=== PATIENT | male | born 1985 | race American Indian/Alaskan Native ===

== ENCOUNTER 2020-10-09 07:14 | Day surgery (SDC) | payer OTHER ==
[2020-10-09] MEDS ORDERED: ASPIRIN EC 325 MG TAB PO NR (07:38)
[2020-10-09] MEDS ORDERED: SODIUM CHLORIDE 0.9% 500 ML 500 ML IV SCH (08:00)
[2020-10-09] MEDS ORDERED: MIDAZOLAM 2 MG/2 ML INJ ONE (08:05)
[2020-10-09] MEDS ORDERED: HEPARIN/NS 5000 UNIT/500ML 1,000 ML IR ONE (08:05)
[2020-10-09] MEDS ORDERED: HEPARIN 10,000 UNITS/10 ML VIAL ONE (08:05)
[2020-10-09 08:06] LABS: Basophils # (Auto) 0.1 K/mm3 (0.0-0.1); Basophils % (Auto) 1.3 % (0.0-1.8); Eosinophils # (Auto) 0.1 K/mm3 (0.0-0.4); Eosinophils % (Auto) 2.1 % (0.0-4.3); Hematocrit 44.1 % (35.5-45.6); Hemoglobin 15.2 gm/dl (11.8-15.2); Lymphocytes # (Auto) 2.7 K/mm3 (1.2-5.4); Lymphocytes % (Auto) 42.3 % (13.4-35.0); Mean Corpuscular HGB Conc 35 % (32-34); Mean Corpuscular Volume 84 fl (84-94); Monocytes # (Auto) 0.9 K/mm3 (0.0-0.8); Monocytes % (Auto) 14.5 % (0.0-7.3); Platelet Count 222 K/mm3 (140-440); Red Blood Count 5.25 M/mm3 (3.65-5.03); Red Cell Distribution Width 13.4 % (13.2-15.2)
[2020-10-09 08:16] LABS: INR 0.95 (0.87-1.13)
[2020-10-09 08:18] LABS: BUN/Creatinine Ratio 16; Blood Urea Nitrogen 14 mg/dL (9-20); Calcium 9.4 mg/dL (8.4-10.2); Hemolysis Index 2
[2020-10-09] MEDS: fentaNYL 100 MCG/2 ML INJ ONE ×3 (09:22→09:41)
[2020-10-09] MEDS: LIDOCAINE (2%) 20 MG/1 ML VIAL 20 ML MDV INFILTRATI ONE ×2 (09:25→09:30)
[2020-10-09] MEDS ORDERED: LIDOCAINE (2%) 20 MG/1 ML VIAL 20 ML MDV INFILTRATI ONE (09:36)
[2020-10-09] MEDS ORDERED: cloNIDine 0.1 MG TAB ONE (09:53)
--- NOTE | 2020-10-09 10:31 | Cardiac Catherization Report ---
DATE OF SERVICE: 10/09/2020 INDICATIONS: The patient is a 35-year-old male with a history of a dilated cardiomyopathy, shortness of breath and an abnormal stress test. Coronary angiography was recommended. PROCEDURES PERFORMED: Left heart catheterization, ventriculography and coronary angiography via the right femoral artery using 5 5-[place] Marilyn catheters and a pigtail catheter. The right femoral artery was also injected with contrast to check for stenosis. This was done because the right femoral artery pulse was quite weak. COMPLICATIONS: None. PREPROCEDURE DIAGNOSIS: Suspected coronary artery disease. POSTPROCEDURE DIAGNOSIS: Severe dilated cardiomyopathy. TISSUE SAMPLE: None. ESTIMATED BLOOD LOSS: 10-20 mL. SEDATION: Intravenous Versed and fentanyl. Intravenous labetalol was also administered for uncontrolled hypertension. HEMODYNAMICS: Central aortic pressure 142/104, left ventricular pressure 142/46. ANGIOGRAPHIC RESULTS: 1. Left ventriculogram was performed via hand injection of 10 mL of contrast given the elevated left ventricular end diastolic pressure. The left ventricle is enlarged and the ejection fraction is 10-20%. 2. Right coronary artery: This is the dominant vessel, there are mild intimal irregularities. Left coronary artery: Mild intimal irregularities. PROCEDURE START TIME: 09:32 a.m. SEDATION START TIME: 09:22 a.m. PROCEDURE END TIME: 09:49 a.m. TOTAL SEDATION TIME: 27 minutes. FINAL IMPRESSION: 1. Severe dilated cardiomyopathy. 2. Essentially normal coronary arteries. 3. Uncontrolled hypertension. 4. Morbid obesity. PLAN: Aggressive medical therapy, CAD risk factor modification. Consider ICD therapy. Office followup within 7 days. TID: [id number] RECEIPT: [id number] JDS/STD
--- NOTE | 2020-10-09 10:43 | Discharge Summary ---
Short Stay Discharge Plan Activity: advance as tolerated Weight Bearing Status: Partial Weight Bearing Diet: low fat, low cholesterol, low salt Wound: open to air, keep clean and dry Additional Instructions: I SAW THIS PT & AGREE WITH THE Dx & Tx PLAN. Follow up with: OFELIA CONRAD MD [Primary Care Provider] - 7 Days Forms: [facility] PCI D/C Instructions
[2020-10-09] MEDS ORDERED: traMADol 50 MG TAB PO PRN (11:00)
[2020-10-09 17:18] VITALS: BP 135/86
--- NOTE | 2020-10-18 10:41 | Electrocardiograph Report ---
[facility] Test Date: 2020-10-09 Test Time: 09:01:20 Pat Name: FALLON MANCINI Department: Room: Gender: M Well Logger: CANDIDA : 1985 Requested By: PAULINA WONG Order Number: [id number] Reading MD: Kizzy Pino Measurements Intervals [place] Rate: 79 P: 32 WY: 179 QRS: -34 QRSD: 100 T: 5 QT: 395 QTc: 454 Interpretive Statements Sinus rhythm Probable left atrial enlargement Left ventricular hypertrophy Borderline T abnormalities, diffuse leads No previous ECG available for comparison Electronically Signed On 10-18-2020 10:40:54 EDT by Kizzy Pino
== END 2020-10-09 14:45 | disposition home or self-care (01) ==
LOC: CATHLABREC 07:14
PROVIDERS: ATTEND Internal Medicine
DX: R06.02 Shortness of breath (principal); R94.39 Abnormal result of other cardiovascular function study; I42.0 Dilated cardiomyopathy; I11.0 Hypertensive heart disease with heart failure; I50.22 Chronic systolic (congestive) heart failure; E66.01 Morbid (severe) obesity due to excess calories; F17.210 Nicotine dependence, cigarettes, uncomplicated; Z88.0 Allergy status to penicillin; Z79.82 Long term (current) use of aspirin; Z79.899 Other long term (current) drug therapy; J45.909 Unspecified asthma, uncomplicated
CPT/HCPCS: 80048; 85025; 85610; 93005; 93458; 99156; 99157; J1644; J2250; J3010; J7040; Q9967